=== PATIENT | female | born 1960 | race Caucasian/White ===

== ENCOUNTER 2024-02-25 19:38 | Emergency (ER) | payer OTHER ==
[~2024-02-25] VITALS: Ht 165.1 cm; Wt 103.0 kg
[2024-02-25 20:09] VITALS: O2SAT 99
[2024-02-25 21:33] LABS: CLARITY URINE CLEAR (CLEAR); COLOR URINE YELLOW (YELLOW); GLUCOSE URINE NEGATIVE (NEGATIVE); KETONES URINE NEGATIVE (NEGATIVE); LEUKOCYTE ESTERASE URINE NEGATIVE (NEGATIVE); NITRITE URINE NEGATIVE (NEGATIVE); OCCULT BLOOD URINE TRACE (NEGATIVE); PH URINE 5.5 (4.5-8.0); PROTEIN URINE TRACE (NEGATIVE); SPECIFIC GRAVITY URINE 1.047 (1.005-1.030)
[2024-02-25] MEDS: IBUPROFEN 600MG TABLET PO ONE (21:49)
[2024-02-25] MEDS: ACETAMINOPHEN 500MG TABLET PO ONE (21:49)
[2024-02-25] MEDS ORDERED: ACET-2708 MT (21:51)
[2024-02-25] MEDS ORDERED: LIDO700A15 TP (21:51)
[2024-02-25] MEDS ORDERED: IBUP-2029 MT (21:51)
[2024-02-25 21:59] VITALS: BP 136/86; PULSE 82; RESP 16; TEMP 98.6
[2024-02-25 22:03] LABS: WBC URINE 0-2 /hpf (0-2)
[2024-02-25 22:04] LABS: BACTERIA URINE 2+; SQUAMOUS EPITHELIAL CELL URINE 2+ /lpf (RARE/1+)
== END 2024-02-25 22:01 | disposition home or self-care (01) ==
LOC: ER 19:38
DX: M54.50 Low back pain, unspecified (principal)
CPT/HCPCS: 81003; 81025; 99283